=== PATIENT | female | born 1995 | race Caucasian/White ===

== ENCOUNTER 2017-02-18 23:45 | Emergency (ER) | payer OTHER ==
[~2017-02-18] VITALS: Ht 152.4 cm; Wt 70.3 kg
[~2017-02-18 23:45] MED LIST: METOCLOPRAMIDE10 M3 PO; MOTRIN600 M1 PO; PRENATAL1 TA1
[2017-02-19 00:07] VITALS: BP 118/72
--- NOTE | 2017-02-19 02:30 | NUR ---
PATIENT LEFT WITHOUT BEING SEEN BY DR. ESPINAL. NO FURTHER CARE PROVIDED FOR PATIENT.
--- NOTE | 2017-02-19 02:32 | NUR ---
Tabby [place] in ED - 02/19/17 at 0250 by [facility] TO ER BED 4
== END 2017-02-19 02:30 | disposition left against medical advice (07) ==
LOC: MED 23:45
DX: H92.02 Otalgia, left ear (principal); Z53.21 Procedure and treatment not carried out due to patient leaving prior to being seen by health care provider

== ENCOUNTER 2018-06-26 10:17 | Emergency (ER) | payer OTHER ==
[~2018-06-26] VITALS: Ht 152.4 cm; Wt 66.7 kg
[2018-06-26 10:17] VITALS: BP 119/83
[~2018-06-26 10:17] MED LIST changes: +IBUP-2213 PO; +METO10TA10 PO; -METOCLOPRAMIDE10 M3 PO; -MOTRIN600 M1 PO; +PREN-234; -PRENATAL1 TA1
[2018-06-26 11:19] LABS: BASOPHILS % (AUTO) 0.6 % (0.0-2.0); EOSINOPHILS % (AUTO) 0.7 % (0.0-4.0); HEMATOCRIT 31.5 % (36-48); HEMOGLOBIN 9.9 g/dL (12.0-16.0); MEAN CORPUSCULAR HEMOGLOBIN 22 pg (27-31); MEAN CORPUSCULAR HGB CONC 32 g/dL (33-37); MONOCYTES # (AUTO) 0.3 K/uL (0.8-1.0); MONOCYTES % (AUTO) 7.7 % (1.7-9.3); NEUTROPHILS # (AUTO) 2.8 K/uL (1.8-7.7); PLATELET COUNT (AUTO) 252 K/uL (140-450); RED BLOOD CELL COUNT(AUTO) 4.49 MIL/uL (4.20-5.40); RED CELL DISTRIBUTION WIDTH 18.9 % (11.6-13.7); WHITE BLOOD COUNT (AUTO) 4.2 K/uL (4.8-10.8)
[2018-06-26 11:41] LABS: APPEARANCE,URINE CLEAR (CLEAR); COLOR,URINE YELLOW (YELLOW)
[2018-06-26 11:42] LABS: BILIRUBIN,URINE NEGATIVE (NEGATIVE); BLOOD, URINE NEGATIVE (NEGATIVE); LEUKOCYTE ESTERASE ,URINE NEGATIVE (NEGATIVE); NITRITE, URINE NEGATIVE (NEGATIVE); UGLUCOSE NEGATIVE (NEGATIVE)
[2018-06-26 11:46] LABS: RBC,URINE 0-5 (RARE) /HPF (0-5); WBC,URINE 0-5 (RARE) /HPF (0-5)
[2018-06-26 13:57] VITALS: BP 120/81
== END 2018-06-26 13:57 | disposition home or self-care (01) ==
LOC: MED 10:17
DX: O20.0 Threatened abortion (principal); Z3A.08 8 weeks gestation of pregnancy; Z79.899 Other long term (current) drug therapy
CPT/HCPCS: 36415; 76817; 81001; 84702; 85025; 86886; 86900; 86901; 99285; J2790; Q0092; 81025

== ENCOUNTER 2019-08-30 13:10 | Emergency (ER) | payer OTHER ==
[~2019-08-30] VITALS: Ht 152.4 cm; Wt 70.8 kg
[2019-08-30 13:14] VITALS: BP 110/69
--- NOTE | 2019-08-30 13:21 | NUR ---
PT AMBULATED TO BED 12
--- NOTE | 2019-08-30 13:28 | NUR ---
24/F C/O EPIGASTRIC PAIN X 3 DAY. PAIN IS SHARP AND INTERMITTENT. + DIARRHEA, LBM TODAY. REPORTS FEVER ON THE FIRST DAY OF PAIN. NO N/V TODAY. PAIN WORSE AFTER EATING. SEEN AT [facility] YESTERDAY WITH RX OF ABX (DOES NOT RECALL NAME) AND NAUSEA MED. PAIN NOT WORSENING. ALLERGIES: NKA MED HX: SPINA BIFIDA SHX- APPENDECTOMY, C SECTION
--- NOTE | 2019-08-30 13:32 | NUR ---
PT AMBULATED TO RESTROOM TO PROVIDE URINE SAMPLE
[2019-08-30] MEDS ORDERED: MORPHINE SULFATE 4 MG/ML SYR IVP ONE (13:50)
[2019-08-30] MEDS ORDERED: ONDANSETRON 4 MG/2 ML VIAL IVP ONE (13:50)
[2019-08-30 14:21] LABS: APPEARANCE,URINE CLOUDY (CLEAR); BILIRUBIN,URINE 1+ (NEGATIVE); BLOOD, URINE 2+ (NEGATIVE); COLOR,URINE YELLOW (YELLOW); LEUKOCYTE ESTERASE ,URINE 1+ (NEGATIVE); NITRITE, URINE NEGATIVE (NEGATIVE); PH,URINE 5.5 (5.0-9.0); UGLUCOSE NEGATIVE (NEGATIVE)
[2019-08-30 14:24] LABS: BASOPHILS % (AUTO) 0.6 % (0.0-2.0); EOSINOPHILS % (AUTO) 0.4 % (0.0-4.0); HEMATOCRIT 33.4 % (36-48); HEMOGLOBIN 10.3 g/dL (12.0-16.0); LYMPHOCYTES # (AUTO) 0.8 K/uL (2.5-16.5); LYMPHOCYTES % (AUTO) 15.3 % (20.5-51.1); MEAN CORPUSCULAR HEMOGLOBIN 20 pg (27-31); MEAN CORPUSCULAR HGB CONC 31 g/dL (33-37); MONOCYTES # (AUTO) 0.6 K/uL (0.8-1.0); MONOCYTES % (AUTO) 10.1 % (1.7-9.3); NEUTROPHILS % (AUTO) 73.6 % (42.2-75.2); PLATELET COUNT (AUTO) 316 K/uL (140-450); RED BLOOD CELL COUNT(AUTO) 5.05 MIL/uL (4.20-5.40); RED CELL DISTRIBUTION WIDTH 18.1 % (11.6-13.7); WHITE BLOOD COUNT (AUTO) 5.5 K/uL (4.8-10.8)
[2019-08-30 14:36] LABS: WBC,URINE 16-25 (MOD) /HPF (0-5)
--- NOTE | 2019-08-30 14:36 | NUR ---
HOT MOLDER AT BEDSIDE
[2019-08-30 14:37] LABS: ANION GAP 14.2 (8-16); CARBON DIOXIDE 27.5 mmol/L (21-32); CREATININE 0.9 mg/dL (0.6-1.3); POTASSIUM 3.7 mmol/L (3.5-5.1)
[2019-08-30 14:42] LABS: RBC,URINE 0-5 /HPF (0-5)
[2019-08-30 14:42] LABS: ALBUMIN 4.1 g/dL (3.4-5.0); TOTAL BILIRUBIN 0.5 mg/dL (0.0-1.0)
--- NOTE | 2019-08-30 14:45 | NUR ---
LAB CALLED ASKING FOR MORE URINE SAMPLE. ASKED PT TO PROVIDE ANOTHER URINE SAMPLE--PT VERBALIZED UNDERSTANDING. ALSO STATES AT THIS TIME THAT SHE HAS NOT HAD ANY SHARP PAINS SINCE RECEIVING THE ORDERED MORPHINE.
[2019-08-30] MEDS ORDERED: cefTRIAXone 1,000 MG VIAL ONE (15:14)
[2019-08-30 18:01] VITALS: BP 109/74
== END 2019-08-30 16:54 | disposition home or self-care (01) ==
LOC: MED 13:10
DX: N39.0 Urinary tract infection, site not specified (principal); Z98.890 Other specified postprocedural states; Z79.899 Other long term (current) drug therapy; Z79.1 Long term (current) use of non-steroidal anti-inflammatories (NSAID)
CPT/HCPCS: 36415; 76705; 80053; 81001; 81025; 82150; 83690; 85025; 96365; 96375; 99284; J0696; J2270; J2405; J7060; Q0092

== ENCOUNTER 2020-06-19 03:45 | Emergency (ER) | payer OTHER ==
[~2020-06-19] VITALS: Ht 152.4 cm; Wt 73.9 kg
[2020-06-19 03:50] VITALS: BP 121/85
--- NOTE | 2020-06-19 04:00 | NUR ---
PT AMBULATED TO BED 7 WITH STEADY GAIT. UA COLLECTED.
--- NOTE | 2020-06-19 04:09 | NUR ---
24 F PRESENTS TO THE ED C/O EPIGASTRIC PAIN RADIATING TO THE UPPER BACK X 4 DAYS. PT STATES THAT IT FEELS LIKE A "KIDNEY INFECTION." PT ALSO VERBALIZES HAVING URINARY FREQUENCY BUT DENIES BURNING SENSATION. DENIES N/V/D. BED LOCKED AND IN LOWEST POSITION, SIDE RAIL UPX1. WILL CONTINUE TO MONITOR. MHX: SPINA BIFIDA NKA
--- NOTE | 2020-06-19 04:11 | NUR ---
DR. GUILLEN AT BEDSIDE EVALUATING PT.
--- NOTE | 2020-06-19 04:25 | NUR ---
URINE AND LABS COLLECTED AND WALKED OVER TO LAB.
[2020-06-19 04:38] LABS: APPEARANCE,URINE CLEAR (CLEAR); BILIRUBIN,URINE NEGATIVE (NEGATIVE); BLOOD, URINE NEGATIVE (NEGATIVE); COLOR,URINE YELLOW (YELLOW); LEUKOCYTE ESTERASE ,URINE NEGATIVE (NEGATIVE); NITRITE, URINE NEGATIVE (NEGATIVE); UGLUCOSE NEGATIVE (NEGATIVE)
[2020-06-19 04:40] LABS: BASOPHILS # (AUTO) 0.1 K/uL (0.00-0.22); BASOPHILS % (AUTO) 0.9 % (0.0-2.0); EOSINOPHILS # (AUTO) 0.1 K/uL (0-0.4); EOSINOPHILS % (AUTO) 0.8 % (0.0-4.0); HEMATOCRIT 32.3 % (36-48); LYMPHOCYTES # (AUTO) 1.2 K/uL (2.5-16.5); LYMPHOCYTES % (AUTO) 10.6 % (20.5-51.1); MEAN CORPUSCULAR HEMOGLOBIN 21 pg (27-31); MEAN CORPUSCULAR HGB CONC 31 g/dL (33-37); MEAN CORPUSCULAR VOLUME 67.2 fL (80-94); MONOCYTES # (AUTO) 0.6 K/uL (0.8-1.0); MONOCYTES % (AUTO) 5.7 % (1.7-9.3); NEUTROPHILS # (AUTO) 9.3 K/uL (1.8-7.7); PLATELET COUNT (AUTO) 319 K/uL (140-450); RED CELL DISTRIBUTION WIDTH 18.8 % (11.6-13.7); WHITE BLOOD COUNT (AUTO) 11.3 K/uL (4.8-10.8)
[2020-06-19 04:48] LABS: RBC,URINE 0-5 /HPF (0-5); WBC,URINE 0-5 /HPF (0-5)
[2020-06-19 04:56] LABS: ALBUMIN 3.7 g/dL (3.4-5.0); ANION GAP 13.5 (8-16); CARBON DIOXIDE 23.9 mmol/L (21-32); CREATININE 0.9 mg/dL (0.6-1.3); POTASSIUM 3.4 mmol/L (3.5-5.1); TOTAL BILIRUBIN 0.2 mg/dL (0.0-1.0)
[2020-06-19 05:30] VITALS: BP 121/85
== END 2020-06-19 05:31 | disposition home or self-care (01) ==
LOC: MED 03:45
DX: N12 Tubulo-interstitial nephritis, not specified as acute or chronic (principal); R10.13 Epigastric pain; Q05.9 Spina bifida, unspecified; Z79.899 Other long term (current) drug therapy
CPT/HCPCS: 36415; 80053; 81001; 81025; 85025; 99284